=== PATIENT | female | born 1980 | race Caucasian/White ===

== ENCOUNTER 2017-02-20 21:18 | Emergency (ER) | payer OTHER ==
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
[2017-02-20] MEDS ORDERED: NORMAL SALINE 1,000 ML IV ONE (23:03)
[2017-02-21 00:13] VITALS: BP 104/65
== END 2017-02-21 00:30 | disposition home or self-care (01) ==
LOC: ER 21:18
DX: S06.0X9A Concussion with loss of consciousness of unspecified duration, initial encounter (principal); W22.8XXA Striking against or struck by other objects, initial encounter; Y92.810 Car as the place of occurrence of the external cause
CPT/HCPCS: 36415; 70450; 72125; 99284; G0481

== ENCOUNTER 2017-06-09 06:41 | Day surgery (SDC) | payer OTHER ==
[~2017-06-09 06:41] MED LIST: RINGER'S SOLUTION,LACTATED 1,000 ML IV PRN
[2017-06-09] MEDS ORDERED: BUPIVACAINE HCL/EPINEPHRINE 50 ML VIAL IJ ONE (08:00)
[2017-06-09] MEDS ORDERED: oxyCODONE HCL/ACETAMINOPHEN 1 TAB TABLET PO ONE (08:37)
[2017-06-09] MEDS ORDERED: RINGER'S SOLUTION,LACTATED 1,000 ML IV PRN (08:37)
[2017-06-09 10:37] VITALS: BP 114/69
--- NOTE | 2017-06-09 17:10 | OR ---
Operative Report - Dictated Report Narrative: OPERATIVE REPORT DATE OF OPERATION: 06/09/2017 PREOPERATIVE DIAGNOSIS: Hemorrhoidal skin tags POSTOPERATIVE DIAGNOSIS: External hemorrhoids and skin tags OPERATION: Excision of external hemorrhoidal skin tags and hemorrhoids. SURGEON: Calvin Helms MD ANESTHESIA: Gen. endotracheal (prone) Dony Moulton CRNA INDICATIONS FOR PROCEDURE: The patient is a 36-year-old female who presented self referred with hemorrhoidal skin tags. She has problems with constipation and has had previous thrombosed external hemorrhoids. FINDINGS: Engorged external hemorrhoids with skin tags. NARRATIVE OF PROCEDURE: The patient was identified preoperatively and prior to the administration of anesthetic a multidisciplinary timeout was observed. The patient was initially placed supine on the cart, SCDs were applied. Gen. endotracheal anesthetic was administered. The patient was then transferred to the prone position on the operating table with appropriate padding and monitoring. The buttocks were retracted with tape and the perineum prepped with Betadine. The perianal area was isolated with 4 sterile towels and the remainder the patient was covered with a sterile disposable drape. The areas of previous tags were seen to be involved with engorged external hemorrhoids. When compressed these reduced to skin tags. A hemorrhoidal group in the right posterior quadrant was elevated and removed with the LigaSure. Two interrupted sutures of 3-0 chromic were placed. A hemorrhoid in the left posterior quadrant was likewise elevated and amputated with the LigaSure. Two sutures of 3-0 chromic were placed. A hemorrhoidal skin tag in the posterior position was elevated and amputated with the LigaSure. This was secured with a single 3-0 chromic suture. The areas appeared to be secure and hemostatic. There was no measurable blood loss. A dressing of ABDs and mesh pants was applied. 0.5% Marcaine was used for local anesthetic infiltration. WERE correct. No specimens were submitted due to the grossly benign nature of the removed tissue. The patient was returned to the supine position without incident and transferred to the recovery room awake, extubated, in stable condition. The patient remained stable throughout. Postoperative observation. She denied discomfort, was up without assistance, and tolerated po intake. She was discharged home with instructions not to lift or engage in hazardous activity today. She has phone numbers to call if needed for uncontrolled pain or bleeding. A return office appointment was made for 7-10 days. Reviewed electronically signed
== END 2017-06-09 06:42 | disposition home or self-care (01) ==
LOC: AMB 06:41
PROVIDERS: ATTEND Surgery
PROC: 0DBQXZZ Excision of Anus, External Approach (ICD-10-PCS; principal; 2017-06-09 08:00)
DX: K64.4 Residual hemorrhoidal skin tags (principal); K21.9 Gastro-esophageal reflux disease without esophagitis; Z87.891 Personal history of nicotine dependence; Z68.34 Body mass index [BMI] 34.0-34.9, adult